=== PATIENT | male | born 1960 | race African-American/Black ===

== ENCOUNTER 2017-02-18 21:19 | Emergency (ER) | payer BC ==
[~2017-02-18] VITALS: Ht 180.3 cm; Wt 93.9 kg
[2017-02-18 22:24] VITALS: BP 130/74
== END 2017-02-18 22:24 | disposition home or self-care (01) ==
LOC: ED 21:19
DX: M75.51 Bursitis of right shoulder (principal); I10 Essential (primary) hypertension; Z79.899 Other long term (current) drug therapy